=== PATIENT | female | born 1935 | race Caucasian/White ===

== ENCOUNTER 2021-01-12 07:21 | Inpatient (IN) ==
[2021-01-12] MEDS ORDERED: 0.9 % Sodium Chloride 1,000 ML IV ONE (08:06)
[2021-01-12 08:41] LABS: Hematocrit 38.8 % (35.3-44.9); Hemoglobin 11.7 g/dL (11.5-15.4); Mean Corpuscular HGB Conc 30.2 g/dL (31.6-35.5); Mean Corpuscular Hemoglobin 24.6 pg (28.0-33.3); Mean Corpuscular Volume 81.7 fL (83.0-100.0); Mean Platelet Volume 11.1 fL (9.4-12.4); Platelet Count 398 K/mcL (140-400); Red Blood Count 4.75 M/mcL (3.82-4.97); Red Cell Distribution Width 18.6 % (11.5-14.5)
[2021-01-12 08:45] LABS: White Blood Count 34.2 K/mcL (4.3-11.1)
[2021-01-12 08:47] LABS: INR 2.1; Prothrombin Time 23.4 Seconds (9.4-12.1)
[2021-01-12 08:49] LABS: Activated Partial Thrombo Time 31.9 Seconds (26.0-36.0)
[2021-01-12 09:04] LABS: Alanine Aminotransferase 9 Units/L (7-52); Albumin 3.5 g/dL (3.5-5.7); Albumin/Globulin Ratio 1.2 (1.1-2.2); Alkaline Phosphatase 103 Units/L (34-104); Aspartate Amino Transferase 16 Units/L (13-39); BUN/Creatinine Ratio 16 (6-26); Blood Urea Nitrogen 12 mg/dL (8-23); Calcium 8.4 mg/dL (8.6-10.3); Carbon Dioxide 23 mEq/L (23-29); Chloride 102 mEq/L (98-107); Creatine Kinase 25 Units/L (30-223); Glucose 124 mg/dL (70-105); Lipase 17 Units/L (11-82); Magnesium 1.7 mg/dL (1.6-2.6); Osmolality,Calculated 279 (280-300); Potassium 3.5 mEq/L (3.5-5.1); Sodium 134 mEq/L (136-145); Total Protein 6.5 g/dL (6.4-8.9); Troponin I 0.04 ng/mL (< 0.04); eGFR For African Americans > 60 (> 60); eGFR For Non-African Americans > 60 (> 60)
[2021-01-12 09:09] LABS: Lymphocytes # 0.7 K/mcL (0.6-4.6); Monocytes # 0.7 K/mcL (0.0-1.3); Neutrophils # 32.8 K/mcL (1.6-8.9); Platelet Estimate Normal (Normal)
[2021-01-12 09:16] LABS: Thyroid Stimulating Hormone 1.881 mcIU/mL (0.340-5.600)
[2021-01-12] MEDS ORDERED: Isovue-370 500 ML BOTTLE IVP ONE (09:29)
[2021-01-12 11:21] LABS: Bilirubin,Urine Negative (Negative); Blood,Urine Negative (Negative); Clarity,Urine Clear (Clear); Color,Urine Colorless (Yellow); Glucose,Urine (UA) Normal (Normal); Ketones,Urine Negative (Negative); Leukocyte Esterase,Urine Negative (Negative); Nitrite,Urine Negative (Negative); PH,Urine 6.5 pH Units (5.0-8.0); Protein,Urine Negative (Neg-Trace); Specific Gravity,Urine 1.022 (1.010-1.025); Urobilinogen,Urine Normal (Normal)
[2021-01-12] MEDS ORDERED: Piperacillin/Tazobactam 3.375 GM in 0.9 % Sodium Chloride Mini Bag 100 ML IVPB ONE (11:24)
[2021-01-12] MEDS ORDERED: Ondansetron ODT 4 MG TAB.RAPDIS SL PRN (12:23)
[2021-01-12] MEDS ORDERED: Naloxone 0.4 MG/ML INJ IVP PRN (12:23)
[2021-01-12] MEDS ORDERED: Vancomycin (wt based) 1,000 MG VIAL IVPB SCH (13:00)
[2021-01-12 14:10] LABS: Adenovirus Not Detected (Not Detect); Bordetella Pertussis Not Detected (Not Detect); Chlamydophila pneumoniae Not Detected (Not Detect); Coronavirus 229E Not Detected (Not Detect); Coronavirus HKU1 Not Detected (Not Detect); Coronavirus NL63 Not Detected (Not Detect); Coronavirus OC43 Not Detected (Not Detect); Human Metapneumovirus Not Detected (Not Detect); Human Rhinovirus/Enterovirus Not Detected (Not Detect); Influenza A Subtype 2009 H1 Not Detected (Not Detect); Influenza B Not Detected (Not Detect); Mycoplasma pneumoniae Not Detected (Not Detect); Parainfluenza Virus 1 Not Detected (Not Detect); Parainfluenza Virus 2 Not Detected (Not Detect); Parainfluenza Virus 3 Not Detected (Not Detect); Parainfluenza Virus 4 Not Detected (Not Detect); Respiratory Syncytial Virus Not Detected (Not Detect); SARS-CoV-2 Not Detected (Not Detect)
[2021-01-12] MEDS: Piperacillin/Tazobactam 3.375 GM in 0.9 % Sodium Chloride Mini Bag 100 ML IVPB SCH (20:36)
[2021-01-12] MEDS ORDERED: Melatonin 3 MG TABLET PO ONE (21:04)
[2021-01-12] MEDS ORDERED: Prochlorperazine 10 MG/2 ML VIAL IVP PRN (21:29)
[2021-01-13 01:08] LABS: Basophils # 0.1 K/mcL (0.0-0.2); Basophils % 0.3 %; Eosinophils # 0.5 K/mcL (0.0-0.6); Eosinophils % 1.5 %; Hematocrit 36.7 % (35.3-44.9); Hemoglobin 10.8 g/dL (11.5-15.4); Immature Granulocytes % 2.7 % (0-4); Lymphocytes # 1.6 K/mcL (0.6-4.6); Lymphocytes % 4.6 %; Mean Corpuscular HGB Conc 29.4 g/dL (31.6-35.5); Mean Corpuscular Hemoglobin 24.4 pg (28.0-33.3); Mean Platelet Volume 11.1 fL (9.4-12.4); Monocytes # 2.4 K/mcL (0.0-1.3); Platelet Count 362 K/mcL (140-400); Red Blood Count 4.42 M/mcL (3.82-4.97); Red Cell Distribution Width 18.5 % (11.5-14.5); Segmented Neutrophils % 83.9 %
[2021-01-13 01:09] LABS: Neutrophils # 28.2 K/mcL (1.6-8.9)
[2021-01-13 01:11] LABS: Platelet Estimate Normal (Normal); White Blood Count 33.6 K/mcL (4.3-11.1)
[2021-01-13 01:25] LABS: BUN/Creatinine Ratio 14 (6-26); Blood Urea Nitrogen 10 mg/dL (8-23); Calcium 8.2 mg/dL (8.6-10.3); Carbon Dioxide 22 mEq/L (23-29); Chloride 105 mEq/L (98-107); Glucose 102 mg/dL (70-105); Magnesium 1.8 mg/dL (1.6-2.6); Osmolality,Calculated 281 (280-300); Potassium 3.7 mEq/L (3.5-5.1); Sodium 136 mEq/L (136-145); eGFR For African Americans > 60 (> 60); eGFR For Non-African Americans > 60 (> 60)
[2021-01-13] MEDS: Piperacillin/Tazobactam 3.375 GM in 0.9 % Sodium Chloride Mini Bag 100 ML IVPB SCH ×3 (04:39→20:31)
[2021-01-13] MEDS: (Linaclotide [Linzess] 145 MCG) PO SCH (06:53)
[2021-01-13] MEDS: Vancomycin 1,250 MG/262.5 ML IV.SOLN IVPB SCH (08:34)
[2021-01-13] MEDS ORDERED: LINACLOTIDE 145 MCG PO SCH (09:00)
[2021-01-13] MEDS: Metoprolol XL (24 HR) Succ 25 MG TAB.ER.24H PO SCH ×2 (12:32→20:30)
[2021-01-13] MEDS: Ipratropium Neb 0.5 MG NEBULIZER IH PRN ×2 (12:44→20:45)
[2021-01-13] MEDS: Acetaminophen 325 MG TABLET PO PRN (15:19)
[2021-01-13] MEDS: predniSONE 20 MG TABLET PO SCH (16:40)
[2021-01-13] MEDS: *HR* Rivaroxaban 10 MG TABLET PO SCH (16:40)
[2021-01-14] MEDS: Acetaminophen 325 MG TABLET PO PRN (01:17)
[2021-01-14 03:30] LABS: Red Cell Distribution Width 18.8 % (11.5-14.5)
[2021-01-14 03:39] LABS: Hemoglobin 10.9 g/dL (11.5-15.4); Mean Corpuscular HGB Conc 28.7 g/dL (31.6-35.5); Mean Corpuscular Hemoglobin 23.9 pg (28.0-33.3); Mean Corpuscular Volume 83.3 fL (83.0-100.0); Mean Platelet Volume 10.5 fL (9.4-12.4); Platelet Count 446 K/mcL (140-400); Red Blood Count 4.56 M/mcL (3.82-4.97)
[2021-01-14 03:47] LABS: BUN/Creatinine Ratio 14 (6-26); Blood Urea Nitrogen 10 mg/dL (8-23); C-Reactive Protein 185 mg/L (Less than 10); Calcium 8.6 mg/dL (8.6-10.3); Carbon Dioxide 24 mEq/L (23-29); Chloride 105 mEq/L (98-107); Glucose 134 mg/dL (70-105); Osmolality,Calculated 287 (280-300); Potassium 3.7 mEq/L (3.5-5.1); Sodium 138 mEq/L (136-145); eGFR For African Americans > 60 (> 60); eGFR For Non-African Americans > 60 (> 60)
[2021-01-14 04:12] LABS: Anisocytosis 1+ (Not Present); Lymphocytes # 1.9 K/mcL (0.6-4.6); Microcytosis Present (Not Present); Monocytes # 0.8 K/mcL (0.0-1.3); Neutrophils # 35.3 K/mcL (1.6-8.9); Platelet Estimate Increased (Normal)
[2021-01-14] MEDS: Piperacillin/Tazobactam 3.375 GM in 0.9 % Sodium Chloride Mini Bag 100 ML IVPB SCH ×3 (04:13→20:21)
[2021-01-14] MEDS: (Linaclotide [Linzess] 145 MCG) PO SCH (05:00)
[2021-01-14] MEDS: Metoprolol XL (24 HR) Succ 25 MG TAB.ER.24H PO SCH ×3 (09:34→20:22)
[2021-01-14] MEDS ORDERED: Vancomycin 1,500 MG/265 ML IV.SOLN IVPB SCH (10:00)
[2021-01-14] MEDS: predniSONE 20 MG TABLET PO SCH (10:04)
[2021-01-14] MEDS: Vancomycin 1,250 MG/262.5 ML IV.SOLN IVPB SCH (10:10)
[2021-01-14] MEDS: *HR* Rivaroxaban 10 MG TABLET PO SCH (16:38)
[2021-01-14] MEDS: Ipratropium Neb 0.5 MG NEBULIZER IH PRN (16:56)
[2021-01-15 01:22] LABS: Eosinophils % 0.6 %; Monocytes % 4.7 %; Red Cell Distribution Width 18.6 % (11.5-14.5)
[2021-01-15 01:23] LABS: Basophils # 0.1 K/mcL (0.0-0.2); Basophils % 0.2 %; Eosinophils # 0.2 K/mcL (0.0-0.6); Hematocrit 35.1 % (35.3-44.9); Hemoglobin 10.5 g/dL (11.5-15.4); Immature Granulocytes % 3.8 % (0-4); Lymphocytes % 4.1 %; Mean Corpuscular HGB Conc 29.9 g/dL (31.6-35.5); Mean Corpuscular Hemoglobin 24.4 pg (28.0-33.3); Mean Corpuscular Volume 81.6 fL (83.0-100.0); Mean Platelet Volume 10.5 fL (9.4-12.4); Monocytes # 1.8 K/mcL (0.0-1.3); Platelet Count 477 K/mcL (140-400); Segmented Neutrophils % 86.6 %
[2021-01-15 01:30] LABS: Lymphocytes # 1.5 K/mcL (0.6-4.6); Neutrophils # 32.5 K/mcL (1.6-8.9)
[2021-01-15 01:31] LABS: White Blood Count 37.5 K/mcL (4.3-11.1)
[2021-01-15 01:38] LABS: BUN/Creatinine Ratio 17 (6-26); Blood Urea Nitrogen 12 mg/dL (8-23); C-Reactive Protein 90 mg/L (Less than 10); Calcium 8.6 mg/dL (8.6-10.3); Carbon Dioxide 23 mEq/L (23-29); Chloride 105 mEq/L (98-107); Glucose 90 mg/dL (70-105); Osmolality,Calculated 285 (280-300); Potassium 3.7 mEq/L (3.5-5.1); Sodium 138 mEq/L (136-145); eGFR For African Americans > 60 (> 60); eGFR For Non-African Americans > 60 (> 60)
[2021-01-15 02:25] LABS: Anisocytosis 1+ (Not Present); Poikilocytosis 1+ (Not Present); Smudge Cells Present (Not Present)
[2021-01-15 02:26] LABS: Platelet Estimate Normal (Normal)
[2021-01-15] MEDS ORDERED: Menthol 1 EACH LOZENGE PO PRN (03:43)
[2021-01-15] MEDS: Piperacillin/Tazobactam 3.375 GM in 0.9 % Sodium Chloride Mini Bag 100 ML IVPB SCH ×3 (03:50→20:10)
[2021-01-15] MEDS: Acetaminophen 325 MG TABLET PO PRN ×2 (03:55→12:21)
[2021-01-15] MEDS: (Linaclotide [Linzess] 145 MCG) PO SCH (05:10)
[2021-01-15] MEDS ORDERED: Nitroglycerin 0.4 MG TAB.SUBL SL PRN (06:15)
[2021-01-15] MEDS: Levalbuterol Neb 1.25 MG/3 ML IH SCH ×4 (06:46→21:21)
[2021-01-15] MEDS ORDERED: Levalbuterol Neb 1.25 MG/3 ML ONE (06:46)
[2021-01-15] MEDS: Metoprolol XL (24 HR) Succ 25 MG TAB.ER.24H PO SCH ×2 (08:14→20:10)
[2021-01-15] MEDS: predniSONE 20 MG TABLET PO SCH (08:14)
[2021-01-15] MEDS: *HR* Rivaroxaban 10 MG TABLET PO SCH (17:16)
[2021-01-15] MEDS: Melatonin 3 MG TABLET PO SCH (20:10)
[2021-01-16 02:59] LABS: Hematocrit 34.6 % (35.3-44.9); Mean Corpuscular HGB Conc 28.9 g/dL (31.6-35.5); Mean Corpuscular Hemoglobin 23.9 pg (28.0-33.3); Mean Corpuscular Volume 82.8 fL (83.0-100.0); Mean Platelet Volume 10.5 fL (9.4-12.4); Monocytes # 1.7 K/mcL (0.0-1.3); Platelet Count 462 K/mcL (140-400); Red Blood Count 4.18 M/mcL (3.82-4.97); Red Cell Distribution Width 18.7 % (11.5-14.5)
[2021-01-16 03:09] LABS: BUN/Creatinine Ratio 15 (6-26); Blood Urea Nitrogen 11 mg/dL (8-23); Calcium 8.4 mg/dL (8.6-10.3); Carbon Dioxide 24 mEq/L (23-29); Chloride 107 mEq/L (98-107); Glucose 97 mg/dL (70-105); Osmolality,Calculated 291 (280-300); Potassium 3.3 mEq/L (3.5-5.1); Sodium 141 mEq/L (136-145); eGFR For African Americans > 60 (> 60); eGFR For Non-African Americans > 60 (> 60)
[2021-01-16 03:35] LABS: Anisocytosis 1+ (Not Present); Lymphocytes # 2.5 K/mcL (0.6-4.6); Neutrophils # 37.8 K/mcL (1.6-8.9); Smudge Cells Present (Not Present)
[2021-01-16] MEDS: Levalbuterol Neb 1.25 MG/3 ML IH SCH ×4 (03:38→22:37)
[2021-01-16] MEDS: Piperacillin/Tazobactam 3.375 GM in 0.9 % Sodium Chloride Mini Bag 100 ML IVPB SCH ×3 (04:39→19:25)
[2021-01-16] MEDS: (Linaclotide [Linzess] 145 MCG) PO SCH (04:40)
[2021-01-16] MEDS: Metoprolol XL (24 HR) Succ 25 MG TAB.ER.24H PO SCH ×2 (11:12→19:26)
[2021-01-16] MEDS: Acetaminophen 325 MG TABLET PO PRN (11:13)
[2021-01-16] MEDS: predniSONE 20 MG TABLET PO SCH (11:13)
[2021-01-16] MEDS: Furosemide 20 MG/2 ML VIAL IVP SCH (16:46)
[2021-01-16] MEDS: *HR* Rivaroxaban 10 MG TABLET PO SCH (16:47)
[2021-01-16] MEDS: Melatonin 3 MG TABLET PO SCH (19:26)
[2021-01-17] MEDS: Piperacillin/Tazobactam 3.375 GM in 0.9 % Sodium Chloride Mini Bag 100 ML IVPB SCH (03:57)
[2021-01-17] MEDS: Acetaminophen 325 MG TABLET PO PRN (04:03)
[2021-01-17] MEDS: Levalbuterol Neb 1.25 MG/3 ML IH SCH ×3 (04:07→15:45)
[2021-01-17 05:31] LABS: Basophils # 0.1 K/mcL (0.0-0.2); Basophils % 0.2 %; Eosinophils % 1.1 %; Hematocrit 35.8 % (35.3-44.9); Hemoglobin 10.7 g/dL (11.5-15.4); Immature Granulocytes % 4.4 % (0-4); Lymphocytes % 4.8 %; Mean Corpuscular HGB Conc 29.9 g/dL (31.6-35.5); Mean Corpuscular Hemoglobin 24.7 pg (28.0-33.3); Mean Corpuscular Volume 82.5 fL (83.0-100.0); Mean Platelet Volume 10.2 fL (9.4-12.4); Monocytes % 4.5 %; Platelet Count 450 K/mcL (140-400); Red Blood Count 4.34 M/mcL (3.82-4.97); Red Cell Distribution Width 18.9 % (11.5-14.5)
[2021-01-17 05:32] LABS: Eosinophils # 0.5 K/mcL (0.0-0.6); Monocytes # 1.9 K/mcL (0.0-1.3); Neutrophils # 34.9 K/mcL (1.6-8.9)
[2021-01-17 05:49] LABS: BUN/Creatinine Ratio 14 (6-26); Blood Urea Nitrogen 11 mg/dL (8-23); Calcium 8.6 mg/dL (8.6-10.3); Carbon Dioxide 26 mEq/L (23-29); Chloride 106 mEq/L (98-107); Glucose 97 mg/dL (70-105); Osmolality,Calculated 291 (280-300); Potassium 3.5 mEq/L (3.5-5.1); Sodium 141 mEq/L (136-145); eGFR For African Americans > 60 (> 60); eGFR For Non-African Americans > 60 (> 60)
[2021-01-17 06:06] LABS: C-Reactive Protein 148 mg/L (Less than 10)
[2021-01-17] MEDS: (Linaclotide [Linzess] 145 MCG) PO SCH (06:22)
[2021-01-17] MEDS: Metoprolol XL (24 HR) Succ 25 MG TAB.ER.24H PO SCH (08:35)
[2021-01-17] MEDS: Furosemide 20 MG/2 ML VIAL IVP SCH (08:35)
[2021-01-17] MEDS ORDERED: levoFLOXacin 500 MG TABLET PO SCH (09:00)
[2021-01-17 14:46] VITALS: BP 137/83
== END 2021-01-17 16:14 | disposition home or self-care (01) | DRG 871 ==
LOC: EMEROOARM 07:21 → 3ANU 07:21 → SUATTDRO 12:28 → 3ANU 14:10 → SUATTDRO 01-14 16:26
PROVIDERS: ADMIT Internal Medicine; ATTEND Internal Medicine

== ENCOUNTER 2021-04-02 12:47 | Inpatient (IN) ==
[2021-04-02 13:47] LABS: Mean Corpuscular Volume 87.8 fL (83.0-100.0); Red Cell Distribution Width 24.2 % (11.5-14.5)
[2021-04-02 13:48] LABS: Hematocrit 44.8 % (35.3-44.9); Hemoglobin 13.5 g/dL (11.5-15.4); Mean Corpuscular HGB Conc 30.1 g/dL (31.6-35.5); Mean Corpuscular Hemoglobin 26.5 pg (28.0-33.3); Mean Platelet Volume 10.7 fL (9.4-12.4); Platelet Count 129 K/mcL (140-400); White Blood Count 24.5 K/mcL (4.3-11.1)
[2021-04-02 13:54] LABS: INR 2.4; Prothrombin Time 26.6 Seconds (9.4-12.1)
[2021-04-02 13:57] LABS: Activated Partial Thrombo Time 42.6 Seconds (26.0-36.0)
[2021-04-02 14:10] LABS: Anisocytosis 1+ (Not Present); Lymphocytes # 3.9 K/mcL (0.6-4.6); Monocytes # 0.5 K/mcL (0.0-1.3); Neutrophils # 20.1 K/mcL (1.6-8.9); Platelet Estimate Slight Decrease (Normal); Reactive Lymphocytes Present (Not Present)
[2021-04-02 14:23] LABS: Bilirubin,Urine Negative (Negative); Blood,Urine Negative (Negative); Clarity,Urine Clear (Clear); Color,Urine Colorless (Yellow); Glucose,Urine (UA) Normal (Normal); Ketones,Urine Negative (Negative); Leukocyte Esterase,Urine Negative (Negative); Nitrite,Urine Negative (Negative); Protein,Urine Negative (Neg-Trace); Specific Gravity,Urine 1.006 (1.010-1.025); Urobilinogen,Urine Normal (Normal)
[2021-04-02 14:39] LABS: BUN/Creatinine Ratio 14 (6-26); Blood Urea Nitrogen 12 mg/dL (8-23); Carbon Dioxide 26 mEq/L (23-29); Chloride 102 mEq/L (98-107); Glucose 101 mg/dL (70-105); Osmolality,Calculated 284 (280-300); Potassium 3.4 mEq/L (3.5-5.1); Sodium 137 mEq/L (136-145); Thyroid Stimulating Hormone 1.792 mcIU/mL (0.340-5.600); Troponin I 0.17 ng/mL (< 0.04); eGFR For African Americans > 60 (> 60); eGFR For Non-African Americans > 60 (> 60)
[2021-04-02] MEDS ORDERED: Aspirin 325 MG TABLET PO ONE (14:52)
[2021-04-02] MEDS ORDERED: Melatonin 3 MG TABLET PO PRN (15:18)
[2021-04-02] MEDS ORDERED: *HR* HYDROcodone/Acet 5/325 mg TABLET PO PRN (15:18)
[2021-04-02] MEDS ORDERED: Ondansetron 4 MG/2 ML VIAL IVP PRN (15:18)
[2021-04-02] MEDS ORDERED: Naloxone 0.4 MG/ML INJ IVP PRN (15:18)
[2021-04-02] MEDS ORDERED: Acetaminophen 325 MG TABLET PO PRN (15:18)
[2021-04-02 15:49] LABS: Magnesium 1.8 mg/dL (1.6-2.6); Phosphorous 3.6 mg/dL (2.7-4.5)
[2021-04-02 16:31] LABS: Adenovirus Not Detected (Not Detect); Bordetella Pertussis Not Detected (Not Detect); Chlamydophila pneumoniae Not Detected (Not Detect); Coronavirus 229E Not Detected (Not Detect); Coronavirus HKU1 Not Detected (Not Detect); Coronavirus NL63 Not Detected (Not Detect); Coronavirus OC43 Not Detected (Not Detect); Human Metapneumovirus Not Detected (Not Detect); Human Rhinovirus/Enterovirus Not Detected (Not Detect); Influenza A Subtype 2009 H1 Not Detected (Not Detect); Influenza B Not Detected (Not Detect); Mycoplasma pneumoniae Not Detected (Not Detect); Parainfluenza Virus 1 Not Detected (Not Detect); Parainfluenza Virus 2 Not Detected (Not Detect); Parainfluenza Virus 3 Not Detected (Not Detect); Parainfluenza Virus 4 Not Detected (Not Detect); Respiratory Syncytial Virus Not Detected (Not Detect); SARS-CoV-2 Not Detected (Not Detect)
[2021-04-02] MEDS ORDERED: Perflutren Lipid Microsphere 1.3 ML in 0.9 % Sodium Chloride 8.7 ML IVP PRN (18:00)
[2021-04-02] MEDS: Metoprolol XL (24 HR) Succ 25 MG TAB.ER.24H PO SCH (21:47)
[2021-04-02] MEDS: Furosemide 20 MG/2 ML VIAL IVP SCH (23:32)
[2021-04-03 04:52] LABS: Hemoglobin 12.4 g/dL (11.5-15.4); Platelet Count 107 K/mcL (140-400)
[2021-04-03 04:53] LABS: Basophils % 0.2 %; Eosinophils # 0.2 K/mcL (0.0-0.6); Eosinophils % 0.9 %; Immature Platelets 5.9 % (1.1-6.1); Lymphocytes # 2.7 K/mcL (0.6-4.6); Lymphocytes % 13.2 %; Mean Corpuscular HGB Conc 30.2 g/dL (31.6-35.5); Mean Corpuscular Hemoglobin 26.3 pg (28.0-33.3); Mean Platelet Volume 10.9 fL (9.4-12.4); Monocytes % 4.7 %; Neutrophils # 16.5 K/mcL (1.6-8.9); Nucleated Red Blood Cells 0.1 /100 WBC (0); Red Blood Count 4.71 M/mcL (3.82-4.97); Red Cell Distribution Width 23.9 % (11.5-14.5); White Blood Count 20.6 K/mcL (4.3-11.1)
[2021-04-03 04:56] LABS: INR 1.7; Prothrombin Time 19.1 Seconds (9.4-12.1)
[2021-04-03 05:08] LABS: Alanine Aminotransferase 8 Units/L (7-52); Albumin 3.7 g/dL (3.5-5.7); Albumin/Globulin Ratio 1.5 (1.1-2.2); Alkaline Phosphatase 75 Units/L (34-104); Aspartate Amino Transferase 14 Units/L (13-39); BUN/Creatinine Ratio 16 (6-26); Bilirubin,Total 0.6 mg/dL (0.3-1.0); Blood Urea Nitrogen 14 mg/dL (8-23); Calcium 8.6 mg/dL (8.6-10.3); Carbon Dioxide 27 mEq/L (23-29); Chloride 104 mEq/L (98-107); Chol/HDL Ratio 4.1 (0-4.9); Globulin 2.5 g/dL (2.4-3.5); Glucose 89 mg/dL (70-105); Magnesium 2.1 mg/dL (1.6-2.6); Osmolality,Calculated 288 (280-300); Phosphorous 3.4 mg/dL (2.7-4.5); Potassium 3.7 mEq/L (3.5-5.1); Sodium 139 mEq/L (136-145); Total Protein 6.2 g/dL (6.4-8.9); eGFR For African Americans > 60 (> 60); eGFR For Non-African Americans > 60 (> 60)
[2021-04-03 05:52] LABS: Anisocytosis 2+ (Not Present); Microcytosis Present (Not Present); Platelet Estimate Slight Decrease (Normal)
[2021-04-03] MEDS: Aspirin 81 MG TAB.CHEW PO SCH (08:09)
[2021-04-03] MEDS: Metoprolol XL (24 HR) Succ 25 MG TAB.ER.24H PO SCH ×2 (08:09→19:50)
[2021-04-03] MEDS: Furosemide 20 MG/2 ML VIAL IVP SCH ×2 (08:09→21:37)
[2021-04-03] MEDS ORDERED: *HR* Metoprolol 5 MG/5 ML VIAL IVP PRN (08:58)
[2021-04-03] MEDS ORDERED: Sennosides/Docusate Sodium TABLET PO PRN (10:39)
[2021-04-03] MEDS: *HR* Rivaroxaban 10 MG TABLET PO SCH (17:21)
[2021-04-03] MEDS: Melatonin 3 MG TABLET PO SCH (19:50)
[2021-04-04 01:18] LABS: Basophils % 0.2 %; Eosinophils # 0.2 K/mcL (0.0-0.6); Eosinophils % 0.9 %; Hematocrit 40.7 % (35.3-44.9); Hemoglobin 12.6 g/dL (11.5-15.4); Immature Granulocytes % 1.5 % (0-4); Lymphocytes % 14.2 %; Mean Corpuscular Hemoglobin 27.2 pg (28.0-33.3); Mean Corpuscular Volume 87.7 fL (83.0-100.0); Mean Platelet Volume 10.4 fL (9.4-12.4); Monocytes # 1.1 K/mcL (0.0-1.3); Monocytes % 5.3 %; Neutrophils # 16.3 K/mcL (1.6-8.9); Platelet Count 107 K/mcL (140-400); Red Blood Count 4.64 M/mcL (3.82-4.97); Red Cell Distribution Width 23.8 % (11.5-14.5); Segmented Neutrophils % 77.9 %; White Blood Count 20.9 K/mcL (4.3-11.1)
[2021-04-04 01:40] LABS: BUN/Creatinine Ratio 18 (6-26); Blood Urea Nitrogen 14 mg/dL (8-23); Calcium 8.6 mg/dL (8.6-10.3); Carbon Dioxide 25 mEq/L (23-29); Chloride 103 mEq/L (98-107); Glucose 91 mg/dL (70-105); Magnesium 1.8 mg/dL (1.6-2.6); Osmolality,Calculated 286 (280-300); Potassium 3.5 mEq/L (3.5-5.1); Sodium 138 mEq/L (136-145); eGFR For African Americans > 60 (> 60); eGFR For Non-African Americans > 60 (> 60)
[2021-04-04 01:48] LABS: Anisocytosis 2+ (Not Present); Platelet Estimate Slight Decrease (Normal)
[2021-04-04] MEDS: Furosemide 20 MG/2 ML VIAL IVP SCH (08:06)
[2021-04-04] MEDS: Metoprolol XL (24 HR) Succ 25 MG TAB.ER.24H PO SCH ×2 (08:07→19:39)
[2021-04-04] MEDS: allopurinoL 300 MG TABLET PO SCH (08:07)
[2021-04-04] MEDS: Aspirin 81 MG TAB.CHEW PO SCH (08:07)
[2021-04-04] MEDS: Cholecalciferol (D-3) 1,000 UNIT (25MCG) TABLET PO SCH (08:07)
[2021-04-04] MEDS ORDERED: (Linaclotide [Linzess] 145 MCG Capsule) PO SCH (09:00)
[2021-04-04] MEDS ORDERED: Hydroxyurea 500 MG CAPSULE PO SCH (09:00)
[2021-04-04] MEDS: DilTIAZem CD (24hr) 180 MG CAP.ER.24H PO SCH (11:11)
[2021-04-04] MEDS: Furosemide 20 MG TABLET PO SCH (16:58)
[2021-04-04] MEDS: *HR* Rivaroxaban 10 MG TABLET PO SCH (16:58)
[2021-04-04] MEDS: Hydroxyurea 500 MG CAPSULE PO SCH (19:39)
[2021-04-04] MEDS: Melatonin 3 MG TABLET PO SCH (19:39)
[2021-04-05 01:49] LABS: Basophils % 0.1 %; Eosinophils # 0.2 K/mcL (0.0-0.6); Eosinophils % 1.1 %; Hematocrit 39.6 % (35.3-44.9); Hemoglobin 11.9 g/dL (11.5-15.4); Immature Granulocytes % 1.2 % (0-4); Lymphocytes # 3.2 K/mcL (0.6-4.6); Lymphocytes % 15.6 %; Mean Corpuscular HGB Conc 30.1 g/dL (31.6-35.5); Mean Corpuscular Hemoglobin 26.9 pg (28.0-33.3); Mean Corpuscular Volume 89.4 fL (83.0-100.0); Mean Platelet Volume 11.6 fL (9.4-12.4); Monocytes # 1.2 K/mcL (0.0-1.3); Platelet Count 118 K/mcL (140-400); Red Blood Count 4.43 M/mcL (3.82-4.97); Red Cell Distribution Width 23.7 % (11.5-14.5); White Blood Count 20.6 K/mcL (4.3-11.1)
[2021-04-05 01:51] LABS: Neutrophils # 15.7 K/mcL (1.6-8.9)
[2021-04-05 02:05] LABS: Anisocytosis 1+ (Not Present); Platelet Estimate Slight Decrease (Normal)
[2021-04-05 02:10] LABS: BUN/Creatinine Ratio 19 (6-26); Blood Urea Nitrogen 17 mg/dL (8-23); Calcium 8.8 mg/dL (8.6-10.3); Carbon Dioxide 27 mEq/L (23-29); Chloride 99 mEq/L (98-107); Glucose 102 mg/dL (70-105); Magnesium 2.2 mg/dL (1.6-2.6); Osmolality,Calculated 282 (280-300); Potassium 3.6 mEq/L (3.5-5.1); Sodium 135 mEq/L (136-145); eGFR For African Americans > 60 (> 60); eGFR For Non-African Americans 60 (> 60)
[2021-04-05 03:49] VITALS: TEMP 98.2
[2021-04-05 07:05] VITALS: BP 119/78; PULSE 84; O2SAT 95
[2021-04-05] MEDS: DilTIAZem CD (24hr) 180 MG CAP.ER.24H PO SCH (09:21)
[2021-04-05] MEDS: Cholecalciferol (D-3) 1,000 UNIT (25MCG) TABLET PO SCH (09:21)
[2021-04-05] MEDS: Aspirin 81 MG TAB.CHEW PO SCH (09:21)
[2021-04-05] MEDS: allopurinoL 300 MG TABLET PO SCH (09:21)
[2021-04-05] MEDS: Metoprolol XL (24 HR) Succ 25 MG TAB.ER.24H PO SCH (09:21)
[2021-04-05] MEDS: Furosemide 20 MG TABLET PO SCH (09:21)
[2021-04-05] MEDS: Hydroxyurea 500 MG CAPSULE PO SCH (09:26)
== END 2021-04-05 11:10 | disposition home or self-care (01) | DRG 280 ==
LOC: SUATTDRO → 2ANU 12:47 → EMEROOARM 12:47 → SUATTDRO 17:22 → 2ANU 17:54
PROVIDERS: ADMIT Internal Medicine; ATTEND Family Medicine

== ENCOUNTER 2021-09-16 08:07 | Observation (INO) ==
[2021-09-16] MEDS ORDERED: Naloxone 0.4 MG/ML INJ IVP PRN (10:20)
[2021-09-16 11:48] LABS: Basophils % 0.3 %; Hemoglobin 12.6 g/dL (11.5-15.4); Immature Granulocytes % 1.2 % (0-4)
[2021-09-16 11:50] LABS: Basophils # 0.1 K/mcL (0.0-0.2); Eosinophils # 0.4 K/mcL (0.0-0.6); Eosinophils % 1.4 %; Hematocrit 42.7 % (35.3-44.9); Lymphocytes # 2.6 K/mcL (0.6-4.6); Lymphocytes % 9.7 %; Mean Corpuscular HGB Conc 29.5 g/dL (31.6-35.5); Mean Corpuscular Hemoglobin 25.6 pg (28.0-33.3); Mean Corpuscular Volume 86.6 fL (83.0-100.0); Mean Platelet Volume 11.3 fL (9.4-12.4); Monocytes # 0.9 K/mcL (0.0-1.3); Monocytes % 3.2 %; Neutrophils # 22.4 K/mcL (1.6-8.9); Platelet Count 298 K/mcL (140-400); Red Blood Count 4.93 M/mcL (3.82-4.97); Red Cell Distribution Width 17.7 % (11.5-14.5); Segmented Neutrophils % 84.2 %; White Blood Count 26.6 K/mcL (4.3-11.1)
[2021-09-16 12:15] LABS: BUN/Creatinine Ratio 13 (6-26); Blood Urea Nitrogen 11 mg/dL (8-23); Calcium 8.7 mg/dL (8.6-10.3); Carbon Dioxide 26 mEq/L (23-29); Chloride 102 mEq/L (98-107); Glucose 65 mg/dL (70-105); Osmolality,Calculated 282 (280-300); Potassium 3.4 mEq/L (3.5-5.1); Sodium 137 mEq/L (136-145); eGFR For African Americans > 60 (> 60); eGFR For Non-African Americans > 60 (> 60)
[2021-09-16 12:51] LABS: Platelet Estimate Normal (Normal)
[2021-09-16] MEDS ORDERED: Sennosides/Docusate Sodium TABLET PO PRN (13:55)
[2021-09-16] MEDS: Furosemide 40 MG TABLET PO SCH (14:30)
[2021-09-16] MEDS ORDERED: Metoprolol XL (24 HR) Succ 25 MG TAB.ER.24H PO SCH (21:00)
[2021-09-16] MEDS: Metoprolol XL (24 HR) Succ 25 MG TAB.ER.24H PO SCH (21:32)
[2021-09-17 05:01] LABS: BUN/Creatinine Ratio 14 (6-26); Blood Urea Nitrogen 11 mg/dL (8-23); Calcium 8.7 mg/dL (8.6-10.3); Carbon Dioxide 27 mEq/L (23-29); Chloride 105 mEq/L (98-107); Glucose 85 mg/dL (70-105); Osmolality,Calculated 289 (280-300); Potassium 3.7 mEq/L (3.5-5.1); Sodium 140 mEq/L (136-145); eGFR For African Americans > 60 (> 60); eGFR For Non-African Americans > 60 (> 60)
[2021-09-17] MEDS: Linaclotide [Linzess] 145 MCG Capsule PO SCH (05:59)
[2021-09-17] MEDS: Aspirin 81 MG TAB.CHEW PO SCH (08:48)
[2021-09-17] MEDS: *HR* Rivaroxaban 10 MG TABLET PO SCH (08:48)
[2021-09-17] MEDS: Cholecalciferol (D-3) 1,000 UNIT (25MCG) TABLET PO SCH (08:48)
[2021-09-17] MEDS: Metoprolol XL (24 HR) Succ 25 MG TAB.ER.24H PO SCH ×2 (08:48→21:22)
[2021-09-17] MEDS: Furosemide 40 MG TABLET PO SCH (08:48)
[2021-09-17] MEDS: allopurinoL 300 MG TABLET PO SCH (08:48)
[2021-09-17] MEDS: DilTIAZem CD (24hr) 180 MG CAP.ER.24H PO SCH (08:48)
[2021-09-18] MEDS: Aspirin 81 MG TAB.CHEW PO SCH (08:54)
[2021-09-18] MEDS: allopurinoL 300 MG TABLET PO SCH (08:54)
[2021-09-18] MEDS: Metoprolol XL (24 HR) Succ 25 MG TAB.ER.24H PO SCH (08:54)
[2021-09-18] MEDS: Cholecalciferol (D-3) 1,000 UNIT (25MCG) TABLET PO SCH (08:54)
[2021-09-18] MEDS: Furosemide 40 MG TABLET PO SCH (08:54)
[2021-09-18] MEDS: DilTIAZem CD (24hr) 180 MG CAP.ER.24H PO SCH (08:54)
[2021-09-18] MEDS: *HR* Rivaroxaban 10 MG TABLET PO SCH (08:54)
[2021-09-18] MEDS: Linaclotide [Linzess] 145 MCG Capsule PO SCH (08:55)
[2021-09-18] MEDS ORDERED: *HR* FentaNYL (PF) 100 MCG/2 ML VIAL IVP PRN (12:13)
[2021-09-18] MEDS ORDERED: 0.9 % Sodium Chloride 500 ML IVC ONE (12:13)
[2021-09-18] MEDS: *HR* Midazolam HCl 5 MG/5 ML VIAL IVP PRN ×2 (12:30→12:34)
[2021-09-18 14:21] VITALS: BP 102/60; PULSE 72; TEMP 97.5; O2SAT 94
[2021-09-20] MEDS ORDERED: ESTRADIOL APPL VG SCH (14:34)
== END 2021-09-18 17:10 | disposition home or self-care (01) ==
LOC: 3BNU
PROVIDERS: ADMIT Internal Medicine Clinical Cardiac Electrophysiology; ATTEND Internal Medicine Clinical Cardiac Electrophysiology